=== PATIENT | female | born 1955 | race Caucasian/White ===

== ENCOUNTER 2019-06-10 15:45 | Inpatient (IN) ==
[2019-06-10] MEDS ORDERED: DEXTROSE 50% 25 GM/50 ML VIAL IV PRN ×2 (19:12→19:17)
[2019-06-10] MEDS ORDERED: GLUCAGON 1 MG VIAL IM PRN ×2 (19:12→19:17)
[2019-06-10] MEDS ORDERED: LABETALOL 20 MG/4 ML SYRINGE IV PRN (19:12)
[2019-06-10] MEDS ORDERED: IBUPROFEN 400 MG TABLET PO PRN (19:18)
[2019-06-10] MEDS ORDERED: DEXTROSE 10% 250 ML IV PRN (20:13)
[2019-06-10] MEDS: INSULIN REGULAR 100 UNIT/ML SUBCUT SCH (21:14)
[2019-06-11 06:05] LABS: Basophils # 0.1 10*3/uL (0.0-0.2); Basophils % 0.8 % (0.0-0.8); Eosinophils # 0.4 10*3/uL (0.0-0.87); Eosinophils % 6.5 % (0.00-10.9); Hematocrit 36.2 VOL% (35.7-47.0); Hemoglobin 11.8 GM/DL (12.0-16.0); Immature Granulocytes % 0.5 %; Immature Granulocytes Absolute 0.03 #; Lymphocytes # 1.8 10*3/uL (1.4-4.0); Mean Corpuscular HGB Conc 32.6 GM/DL (32-36); Mean Corpuscular Volume 93.8 FL (87-102); Mean Platelet Volume 9.9 FL (9.6-12.0); Monocytes % 12.8 % (1.7-12.7); Neutrophils % 50.4 % (38.7-73.9); Platelet Count 245 T/CUMM (130-400); Red Blood Count 3.86 MC/CUMM (3.8-5.5); Red Cell Distribution Width 12.3 % (9.3-17.3); White Blood Count 6.3 T/CUMM (4-12)
[2019-06-11 06:24] LABS: Albumin 3.2 G/DL (3.4-5.0); Bilirubin,Total 0.6 MG/DL (0.2-1.0); Calcium 8.8 MG/DL (8.5-10.1); Total Protein 6.4 G/DL (6.4-8.3)
[2019-06-11 06:25] LABS: Osmolality,Calculated 285.3 MOS/KG (273-304); Risk Ratio 7.72; VLDL CHOLESTEROL 35.2 MG/DL
[2019-06-11] MEDS: LEVOTHYROXINE 75 MCG TABLET PO SCH (06:55)
[2019-06-11] MEDS ORDERED: POTASSIUM CHLORIDE RIDER 10 MEQ in PREMIX 1 EACH IV PRN (07:50)
[2019-06-11] MEDS: ASPIRIN 325 MG TABLET PO SCH (09:49)
[2019-06-11] MEDS: ENOXAPARIN 40 MG/0.4 ML SYRINGE SUBCUT SCH (09:49)
[2019-06-11] MEDS: METOPROLOL SUCCINATE XL 50 MG TABLET PO SCH (09:49)
[2019-06-11] MEDS: INSULIN REGULAR 100 UNIT/ML SUBCUT SCH ×3 (09:50→21:00)
[2019-06-11] MEDS ORDERED: ATORVASTATIN 80 MG TABLET PO SCH (21:00)
[2019-06-12 05:15] LABS: Basophils # 0.1 10*3/uL (0.0-0.2); Eosinophils # 0.3 10*3/uL (0.0-0.87); Eosinophils % 5.1 % (0.00-10.9); Hematocrit 36.6 VOL% (35.7-47.0); Hemoglobin 11.9 GM/DL (12.0-16.0); Immature Granulocytes % 0.2 %; Immature Granulocytes Absolute 0.01 #; Lymphocytes % 32.2 % (21.3-54.2); Mean Corpuscular HGB Conc 32.5 GM/DL (32-36); Mean Corpuscular Volume 93.8 FL (87-102); Monocytes % 12.3 % (1.7-12.7); Neutrophils % 49.2 % (38.7-73.9); Platelet Count 244 T/CUMM (130-400); Red Cell Distribution Width 12.2 % (9.3-17.3); White Blood Count 6.1 T/CUMM (4-12)
[2019-06-12 05:47] LABS: Calcium 8.7 MG/DL (8.5-10.1); Osmolality,Calculated 280.5 MOS/KG (273-304)
[2019-06-12] MEDS: LEVOTHYROXINE 75 MCG TABLET PO SCH (06:27)
[2019-06-12] MEDS: INSULIN REGULAR 100 UNIT/ML SUBCUT SCH ×3 (07:40→16:41)
[2019-06-12] MEDS ORDERED: ROSUVASTATIN 20 MG TABLET PO SCH (09:00)
[2019-06-12] MEDS: ASPIRIN 325 MG TABLET PO SCH (09:37)
[2019-06-12] MEDS: METOPROLOL SUCCINATE XL 50 MG TABLET PO SCH (09:37)
[2019-06-12] MEDS: ENOXAPARIN 40 MG/0.4 ML SYRINGE SUBCUT SCH (09:37)
[2019-06-12 16:20] VITALS: BP 134/72
[2019-06-12] MEDS ORDERED: CLOPIDOGREL 75 MG TABLET PO SCH (16:48)
[2019-06-13] MEDS ORDERED: ASPIRIN EC 81 MG TABLET PO SCH (09:00)
== END 2019-06-12 18:15 | disposition home or self-care (01) | DRG 66 ==
LOC: N.4E → SUATTDRO 17:25
PROVIDERS: ADMIT Internal Medicine; ATTEND Internal Medicine